=== PATIENT | male | born 1955 | race Caucasian/White ===

== ENCOUNTER → 2022-09-19 | Outpatient (CLI) | payer OTHER ==
[~2022-09-19] MED LIST: COMBIVENT RESPIM4 GM INH; ENOX40I SC; LEVO750 PO; METPRE4DP PO; OMEP20ER; OMEPRAZOLE MAGN20 MG PO; OXYACE5T PO; Omeprazole20 M1; Percocet 5-3251 EACH PO; Prednisone20 MG PO; TRAZ100 PO; WARF4 PO; Zofran4 MG PO
[2022-09-19 16:01] LABS: BASOPHILS ABSOLUTE AUTO 0.05 K/mm3 (0.00-0.23); BASOPHILS PERCENT AUTO 1 % (0-2); EOSINOPHILS ABSOLUTE AUTO 0.25 K/mm3 (0.00-0.68); EOSINOPHILS PERCENT AUTO 4 % (0-6); Hematocrit 43.8 % (37.0-53.0); Hemoglobin 15.3 g/dL (13.5-17.5); IMMATURE GRAN ABSOLUTE AUTO 0.01 K/mm3 (0.00-0.10); IMMATURE GRAN PERCENT AUTO 0 % (0-1); LYMPHOCYTES ABSOLUTE AUTO 1.54 K/mm3 (0.84-5.20); LYMPHOCYTES PERCENT AUTO 26 % (21-46); MONOCYTES ABSOLUTE AUTO 0.65 K/mm3 (0.16-1.47); MONOCYTES PERCENT AUTO 11 % (4-13); Mean Corpuscular HGB 31.9 pg (26.0-34.0); Mean Corpuscular HGB Conc 34.9 g/dL (31.5-36.5); Mean Corpuscular Volume 91 fL (80-100); Mean Platelet Volume 10.5 fL (9.1-12.4); NEUTROPHILS ABSOLUTE AUTO 3.34 K/mm3 (1.96-9.15); NEUTROPHILS PERCENT AUTO 57 % (41-73); Platelet Count 169 K/mm3 (150-400); RDW Coefficient Variation 12.2 % (11.7-14.2); RDW Standard Deviation 40.9 fL (35.1-46.3); Red Blood Cell Count 4.79 M/mm3 (4.30-5.90); White Blood Cell Count 5.84 K/mm3 (4.00-11.30)
[2022-09-19 16:18] LABS: Albumin, Blood 3.8 g/dL (3.4-5.0); Albumin/Globulin Ratio 1.1 (0.8-1.8); Bilirubin, Total 0.7 mg/dL (0.1-1.0); Bun/Creatinine Ratio 18.7 (12.0-20.0); Creatinine, Blood 1.23 mg/dL (0.60-1.20); Globulin, Blood 3.4 g/dL (2.2-4.0); Potassium, Blood 4.1 mmol/L (3.5-5.5); Total Protein, Blood 7.2 g/dL (6.4-8.2)
[2022-09-20 21:08] LABS: HBSAG SCREEN Negative (Negative); HCV AB Non Reactive (Non Reactive); HEP B CORE AB, TOT Negative (Negative)
== END | disposition home or self-care (01) ==
LOC: LAB SHORT 12:00
PROVIDERS: Family Medicine
DX: R10.9 Unspecified abdominal pain (principal)
CPT/HCPCS: 80053; 85025; 86704; 86708; 86803; 87340

== ENCOUNTER 2024-10-01 18:21 | Emergency (ER) | payer SELFPAY ==
[~2024-10-01] VITALS: Ht 177.8 cm; Wt 89.4 kg
[2024-10-01 19:24] LABS: BASOPHILS ABSOLUTE AUTO 0.03 K/mm3 (0.00-0.23); BASOPHILS PERCENT AUTO 0 % (0-2); EOSINOPHILS ABSOLUTE AUTO 0.23 K/mm3 (0.00-0.68); EOSINOPHILS PERCENT AUTO 3 % (0-6); Hematocrit 40.1 % (37.0-53.0); Hemoglobin 13.8 g/dL (13.5-17.5); IMMATURE GRAN ABSOLUTE AUTO 0.02 K/mm3 (0.00-0.10); IMMATURE GRAN PERCENT AUTO 0 % (0-1); LYMPHOCYTES ABSOLUTE AUTO 1.03 K/mm3 (0.84-5.20); LYMPHOCYTES PERCENT AUTO 14 % (21-46); MONOCYTES ABSOLUTE AUTO 0.72 K/mm3 (0.16-1.47); MONOCYTES PERCENT AUTO 10 % (4-13); Mean Corpuscular HGB 31.4 pg (26.0-34.0); Mean Corpuscular HGB Conc 34.4 g/dL (31.5-36.5); Mean Corpuscular Volume 91 fL (80-100); Mean Platelet Volume 10.1 fL (9.1-12.4); NEUTROPHILS ABSOLUTE AUTO 5.38 K/mm3 (1.96-9.15); NEUTROPHILS PERCENT AUTO 73 % (41-73); Platelet Count 168 K/mm3 (150-400); RDW Coefficient Variation 12.4 % (11.7-14.2); RDW Standard Deviation 41.2 fL (35.1-46.3); Red Blood Cell Count 4.39 M/mm3 (4.30-5.90); White Blood Cell Count 7.41 K/mm3 (4.00-11.30)
[2024-10-01 19:33] LABS: Albumin, Blood 3.9 g/dL (3.4-5.0); Albumin/Globulin Ratio 1.3 (0.8-1.8); Bilirubin, Total 0.3 mg/dL (0.1-1.0); Bun/Creatinine Ratio 16.3 (12.0-20.0); Calcium, Blood 9.3 mg/dL (8.5-10.1); Creatinine, Blood 1.23 mg/dL (0.60-1.20); Globulin, Blood 2.9 g/dL (2.2-4.0); Potassium, Blood 4.3 mmol/L (3.5-5.5); Total Protein, Blood 6.8 g/dL (6.4-8.2)
[2024-10-01 21:12] VITALS: BP 138/93
[2024-10-01 21:13] LABS: Source, Urine Clean Catch
[2024-10-01 21:15] LABS: Bilirubin, Urine Neg (Neg); Blood, Urine Neg (Neg); Glucose Qualitative, Urine Neg (Neg); Ketones, Urine Neg (Neg); Leukocyte Esterase, Urine Neg (Neg); Nitrite, Urine Neg (Neg); Protein, Urine Neg (Neg); Specific Gravity, Urine 1.015 (1.003-1.022); Urobilinogen, Urine NORM (Normal); pH, Urine 6.5 (5.0-8.0)
[2024-10-01 21:17] LABS: Appearance, Urine Clear (Clear); Color, Urine Pale Yellow (P-Yellow)
[2024-10-02] MEDS ORDERED: Ketorolac Tromethamine 15mg Vial IV ONE (00:10)
[2024-10-02] MEDS ORDERED: HYDROcodone 5-APAP 325 TAB PO ONE ×2 (00:10→00:25)
== END 2024-10-02 00:29 | disposition home or self-care (01) ==
LOC: ER 18:21
PROVIDERS: Student in an Organized Health Care Education/Training Program
DX: M79.18 Myalgia, other site (principal); Z86.73 Personal history of transient ischemic attack (TIA), and cerebral infarction without residual deficits; Z79.01 Long term (current) use of anticoagulants; Z88.1 Allergy status to other antibiotic agents
CPT/HCPCS: 74176; 80053; 81003; 83690; 85025; 93005; 93010; 96374; 99284-25; A9270; J1885

== ENCOUNTER → 2024-10-14 | Outpatient (CLI) | payer OTHER ==
[2024-10-14 19:29] LABS: Hematocrit 41.3 % (37.0-53.0); Hemoglobin 14.5 g/dL (13.5-17.5); Mean Corpuscular HGB 32.2 pg (26.0-34.0); Mean Corpuscular HGB Conc 35.1 g/dL (31.5-36.5); Mean Corpuscular Volume 92 fL (80-100); Mean Platelet Volume 10.1 fL (9.1-12.4); Platelet Count 198 K/mm3 (150-400); RDW Coefficient Variation 12.5 % (11.7-14.2); RDW Standard Deviation 42.2 fL (35.1-46.3); White Blood Cell Count 6.93 K/mm3 (4.00-11.30)
[2024-10-14 20:14] LABS: Alanine Aminotransfer (ALT/SGP 38 U/L (12-78); Albumin, Blood 4.1 g/dL (3.4-5.0); Albumin/Globulin Ratio 1.4 (0.8-1.8); Alk Phos 82 U/L (50-136); Anion Gap 9 mmol/L (3-11); Aspartate Aminotrans (AST/SGOT 26 U/L (12-37); Bilirubin, Total 0.6 mg/dL (0.1-1.0); Blood Urea Nitrogen 29 mg/dL (8-24); CHOL/HDL RATIO 3.7; CO2, Blood 25 mmol/L (21-32); Calcium, Blood 8.6 mg/dL (8.5-10.1); Chloride, Blood 105 mmol/L (98-108); Cholesterol 174 mg/dL (50-200); Globulin, Blood 2.9 g/dL (2.2-4.0); Glucose, Blood 93 mg/dL (70-99); HDL Cholesterol 47 mg/dL (>39); LDL/HDL RATIO 2.2; Low Density Lipoprotein Chol 104 mg/dL (0-110); Potassium, Blood 4.2 mmol/L (3.5-5.5); Sodium, Blood 135 mmol/L (136-145); Triglycerides 115 mg/dL (30-160); Very Low Density Lipoprot Chol 23 mg/dL (6-32)
[2024-10-14 20:22] LABS: Bun/Creatinine Ratio 28.2 (12.0-20.0); Creatinine, Blood 1.03 mg/dL (0.60-1.20); Glomerular Filtration Rate 78 (60-); Thyroid Stimulating Hormone 0.522 uIU/mL (0.360-4.800)
== END | disposition home or self-care (01) ==
LOC: LAB SHORT 19:11 → LAB 19:11
DX: I48.0 Paroxysmal atrial fibrillation (principal)
CPT/HCPCS: 80053; 80061; 83036; 84443; 85027

== ENCOUNTER 2025-01-03 10:26 | Day surgery (SDC) | payer OTHER ==
[~2025-01-03] VITALS: Ht 177.8 cm; Wt 83.2 kg
[2025-01-03] MEDS ORDERED: CeFAZolin Sodium 2,000 MG VIAL ONE (11:07)
[2025-01-03] MEDS ORDERED: NS 100 ML IV ONE (11:07)
[2025-01-03] MEDS ORDERED: ELIQUIS2.5 MG PO (11:31)
[2025-01-03] MEDS ORDERED: STIOLTO RESPIMAT4 G1 INH (11:34)
[2025-01-03] MEDS ORDERED: Lidocaine 2%-Epineph 1:200000 20 ML SDV ONE (12:57)
[2025-01-03] MEDS ORDERED: Bupivacaine 0.5% W/EPI 1:200000 SDV 30 ML Vial ONE (12:57)
[2025-01-03] MEDS ORDERED: Midazolam HCl 1MG / ML 2ML Vial ONE (13:21)
[2025-01-03] MEDS ORDERED: FentaNYL Citrate 50 MCG/ML 2 ML Injection ONE (13:41)
[2025-01-03] MEDS ORDERED: HYDROmorphone HCl/Pf 1MG SYR ONE (17:15)
[2025-01-03] MEDS ORDERED: CeFAZolin Sodium 1000 mg Vial ONE (17:16)
[2025-01-03] MEDS ORDERED: Ketorolac Tromethamine 30mg Vial ONE (17:30)
[2025-01-03] MEDS ORDERED: Dexamethasone Sod Phos 10 MG/ML 1ML VIAL ONE (17:30)
[2025-01-03] MEDS ORDERED: Ondansetron HCl 2 MG / ML 2ML Vial ONE ×2 (17:30→17:54)
--- NOTE | 2025-01-03 17:44 | NUR ---
01/03/25 1744 Kristian Crane O2 SATURATIONS 94% ON RA. CAP REFILL LESS THAN 3 SECONDS ON ALL 4 EXTREMITIES. PT DENIES PAIN AT THIS TIME. VSS.
[2025-01-03 17:54] VITALS: BP 92/72
--- NOTE | 2025-01-03 18:13 | NUR ---
01/03/25 181 Kristian Crane ADMINISTERED ZOFRAN 4 MG IV FOR NAUSEA PER ANESTHESIA ORDER.
[2025-01-03] MEDS ORDERED: Metoclopramide HCl 5MG / ML 2ML Vial ONE (18:38)
== END 2025-01-03 19:52 | disposition home or self-care (01) ==
LOC: ORSCSDS 10:26
PROVIDERS: Podiatrist Foot & Ankle Surgery
PROC: 0SGK04Z Fusion of Right Tarsometatarsal Joint with Internal Fixation Device, Open Approach (ICD-10-PCS; principal; 2025-01-03 12:00)
PROC: 0QBN0ZZ Excision of Right Metatarsal, Open Approach (ICD-10-PCS; principal; 2025-01-03 12:00)
DX: M20.11 Hallux valgus (acquired), right foot (principal); J45.909 Unspecified asthma, uncomplicated; I48.91 Unspecified atrial fibrillation; J44.9 Chronic obstructive pulmonary disease, unspecified; G47.33 Obstructive sleep apnea (adult) (pediatric); Z79.01 Long term (current) use of anticoagulants; Z79.899 Other long term (current) drug therapy; Z87.891 Personal history of nicotine dependence
CPT/HCPCS: A6253; C1713; J0690; J1100; J1171; J1885; J2250; J2405; J2704; J2765; J3010; J7120